=== PATIENT | male | born 1955 | race African-American/Black ===

== ENCOUNTER 2019-05-03 10:35 | Inpatient (IN) ==
[2019-05-03] MEDS ORDERED: ACETAMINOPHEN 325 MG TABLET PO PRN (14:33)
[2019-05-03] MEDS ORDERED: MORPHINE 4 MG/1 ML VIAL IV PRN (14:33)
[2019-05-03] MEDS ORDERED: ZALEPLON 5 MG CAPSULE PO PRN (14:33)
[2019-05-03] MEDS ORDERED: ONDANSETRON 4 MG/2 ML VIAL IV PRN (14:33)
[2019-05-03 15:23] LABS: Albumin 3.3 G/DL (3.4-5.0); Bilirubin,Total 0.5 MG/DL (0.2-1.0); Calcium 8.5 MG/DL (8.5-10.1); Osmolality,Calculated 302.5 MOS/KG (273-304); Total Protein 7.6 G/DL (6.4-8.3)
[2019-05-03] MEDS: ENOXAPARIN 30 MG/0.3 ML SYRINGE SUBCUT SCH (16:22)
[2019-05-03] MEDS ORDERED: BISACODYL 10 MG SUPP RECTAL ONE (16:48)
[2019-05-03] MEDS: POLYETHYLENE GLYCOL POWDER 17 GM PACK PO SCH (17:30)
[2019-05-03 18:56] LABS: Apearance,Urine CLEAR (Clear); Bilirubin,Urine Negative (Negative); Blood, Urine Moderate mg/dL (Negative); Glucose,Urine (UA) Negative (Negative); Ketones,Urine Negative (Negative); Mucus,Urine Occasional /LPF (Occasional); Nitrite,Urine Positive (Negative); Protein,Urine 100 MG/DL; RBC,Urine 161 /HPF (0-4); Urine Color Amber (Yellow); Urine Specific Gravity 1.008 (1.001-1.035); WBC,Urine 4 /HPF (0-6)
[2019-05-03] MEDS: SODIUM CHLORIDE 0.9% 1,000 ML IV SCH (19:03)
[2019-05-03] MEDS ORDERED: cefTRIAXone 2,000 MG in SYRINGE 1 EACH IV SCH (21:00)
[2019-05-03] MEDS: DOCUSATE SODIUM 100 MG CAPSULE PO SCH (21:45)
[2019-05-03] MEDS: CARVEDILOL 6.25 MG TABLET PO SCH (21:45)
[2019-05-04 04:40] LABS: Basophils % 0.4 % (0.0-0.8); Eosinophils # 0.2 10*3/uL (0.0-0.87); Eosinophils % 2.1 % (0.00-10.9); Hematocrit 29.7 VOL% (42.0-52.0); Hemoglobin 9.4 GM/DL (14.0-18.0); Immature Granulocytes % 0.3 %; Immature Granulocytes Absolute 0.03 #; Lymphocytes # 1.3 10*3/uL (1.4-4.0); Lymphocytes % 13.4 % (21.2-54.2); Mean Corpuscular HGB Conc 31.6 GM/DL (32-36); Mean Corpuscular Volume 88.9 FL (87-102); Mean Platelet Volume 11.7 FL (9.6-12.0); Monocytes % 8.1 % (1.7-12.7); Neutrophils % 75.7 % (38.7-73.9); Platelet Count 174 T/CUMM (130-400); Red Blood Count 3.34 MC/CUMM (3.8-5.5); Red Cell Distribution Width 15.9 % (9.3-17.3); White Blood Count 9.8 T/CUMM (4-12)
[2019-05-04 05:02] LABS: Calcium 8.3 MG/DL (8.5-10.1); Osmolality,Calculated 302.4 MOS/KG (273-304)
[2019-05-04] MEDS: SODIUM CHLORIDE 0.9% 1,000 ML IV SCH ×4 (07:00→20:55)
[2019-05-04] MEDS: DOCUSATE SODIUM 100 MG CAPSULE PO SCH ×2 (10:08→20:56)
[2019-05-04] MEDS: CARVEDILOL 6.25 MG TABLET PO SCH ×2 (10:08→20:56)
[2019-05-04] MEDS: POLYETHYLENE GLYCOL POWDER 17 GM PACK PO SCH (10:08)
[2019-05-04] MEDS: amLODIPine 5 MG TABLET PO SCH (10:08)
[2019-05-04] MEDS: ISOSORBIDE MONONITRATE 30 MG TABLET PO SCH (10:12)
[2019-05-04] MEDS: FERROUS SULFATE 325 MG TABLET PO SCH (10:12)
[2019-05-04] MEDS: MEROPENEM 500 MG in SODIUM CHLORIDE 0.9% 100 ML IV SCH ×2 (10:12→20:56)
[2019-05-04] MEDS: ENOXAPARIN 30 MG/0.3 ML SYRINGE SUBCUT SCH (16:05)
[2019-05-05] MEDS: SODIUM CHLORIDE 0.9% 1,000 ML IV SCH ×2 (05:20→15:26)
[2019-05-05 05:27] LABS: Basophils % 0.4 % (0.0-0.8); Eosinophils # 0.2 10*3/uL (0.0-0.87); Eosinophils % 2.9 % (0.00-10.9); Hematocrit 29.6 VOL% (42.0-52.0); Hemoglobin 9.2 GM/DL (14.0-18.0); Immature Granulocytes % 0.5 %; Immature Granulocytes Absolute 0.04 #; Lymphocytes # 1.5 10*3/uL (1.4-4.0); Lymphocytes % 18.5 % (21.2-54.2); Mean Corpuscular HGB Conc 31.1 GM/DL (32-36); Mean Corpuscular Volume 90.2 FL (87-102); Mean Platelet Volume 11.6 FL (9.6-12.0); Monocytes % 7.5 % (1.7-12.7); Neutrophils % 70.2 % (38.7-73.9); Platelet Count 194 T/CUMM (130-400); Red Blood Count 3.28 MC/CUMM (3.8-5.5); Red Cell Distribution Width 15.6 % (9.3-17.3); White Blood Count 8.3 T/CUMM (4-12)
[2019-05-05 05:43] LABS: Calcium 8.5 MG/DL (8.5-10.1); Osmolality,Calculated 299.8 MOS/KG (273-304)
[2019-05-05] MEDS: DOCUSATE SODIUM 100 MG CAPSULE PO SCH ×2 (08:25→21:19)
[2019-05-05] MEDS: amLODIPine 5 MG TABLET PO SCH (08:25)
[2019-05-05] MEDS: CARVEDILOL 6.25 MG TABLET PO SCH ×2 (08:25→21:20)
[2019-05-05] MEDS: POLYETHYLENE GLYCOL POWDER 17 GM PACK PO SCH (08:25)
[2019-05-05] MEDS: FERROUS SULFATE 325 MG TABLET PO SCH (08:25)
[2019-05-05] MEDS: ISOSORBIDE MONONITRATE 30 MG TABLET PO SCH (08:25)
[2019-05-05] MEDS: MEROPENEM 500 MG in SODIUM CHLORIDE 0.9% 100 ML IV SCH ×2 (08:26→21:17)
[2019-05-05] MEDS ORDERED: BELLADONNA/OPIUM 30 MG SUPP RECTAL PRN (10:41)
[2019-05-05] MEDS: OXYBUTYNIN XL 10 MG TABLET PO SCH (11:55)
[2019-05-05] MEDS: ENOXAPARIN 30 MG/0.3 ML SYRINGE SUBCUT SCH (16:35)
[2019-05-06 05:15] LABS: Basophils % 0.5 % (0.0-0.8); Eosinophils # 0.3 10*3/uL (0.0-0.87); Eosinophils % 3.7 % (0.00-10.9); Hemoglobin 9.3 GM/DL (14.0-18.0); Immature Granulocytes % 0.4 %; Immature Granulocytes Absolute 0.03 #; Lymphocytes # 1.6 10*3/uL (1.4-4.0); Lymphocytes % 21.3 % (21.2-54.2); Mean Corpuscular Volume 89.8 FL (87-102); Mean Platelet Volume 11.6 FL (9.6-12.0); Monocytes % 7.6 % (1.7-12.7); Neutrophils % 66.5 % (38.7-73.9); Platelet Count 206 T/CUMM (130-400); Red Blood Count 3.34 MC/CUMM (3.8-5.5); Red Cell Distribution Width 15.5 % (9.3-17.3); White Blood Count 7.3 T/CUMM (4-12)
[2019-05-06] MEDS: SODIUM CHLORIDE 0.9% 1,000 ML IV SCH (05:21)
[2019-05-06 05:34] LABS: Calcium 8.7 MG/DL (8.5-10.1)
[2019-05-06] MEDS: OXYBUTYNIN XL 10 MG TABLET PO SCH (08:51)
[2019-05-06] MEDS: amLODIPine 5 MG TABLET PO SCH (08:51)
[2019-05-06] MEDS: CARVEDILOL 6.25 MG TABLET PO SCH (08:51)
[2019-05-06] MEDS: DOCUSATE SODIUM 100 MG CAPSULE PO SCH (08:52)
[2019-05-06] MEDS: ISOSORBIDE MONONITRATE 30 MG TABLET PO SCH (08:52)
[2019-05-06] MEDS: FERROUS SULFATE 325 MG TABLET PO SCH (08:52)
[2019-05-06] MEDS: POLYETHYLENE GLYCOL POWDER 17 GM PACK PO SCH (08:55)
[2019-05-06] MEDS ORDERED: ENOXAPARIN 40 MG/0.4 ML SYRINGE SUBCUT SCH (09:00)
[2019-05-06 11:08] VITALS: BP 137/76
== END 2019-05-06 13:49 | disposition home health service (06) | DRG 683 ==
LOC: SUATTDRO 13:56 → N.3E 13:56
PROVIDERS: ADMIT Family Medicine; ATTEND Internal Medicine

== ENCOUNTER 2020-01-21 08:56 | Inpatient (IN) ==
[2020-01-21] MEDS ORDERED: BUPIVACAINE 0.25% /EPI 10 ML VIAL ONE (12:12)
[2020-01-21] MEDS ORDERED: LIDOCAINE 1%/EPI INJ 20 ML VIAL ONE (12:12)
[2020-01-21] MEDS ORDERED: TISSUE ADHESIVE 1 EACH APPLICATOR TOP ONE (12:12)
[2020-01-21] MEDS ORDERED: ceFAZolin 1,000 MG in SYRINGE 1 EACH IV ONE (12:44)
[2020-01-21] MEDS ORDERED: ceFAZolin 1,000 MG VIAL ONE (12:52)
[2020-01-21] MEDS ORDERED: SODIUM CHLORIDE 0.9% 250 ML IV SCH (13:00)
[2020-01-21] MEDS ORDERED: fentaNYL 100 MCG/2 ML VIAL ONE (14:53)
[2020-01-21] MEDS ORDERED: ONDANSETRON 4 MG/2 ML VIAL ONE (14:53)
[2020-01-21] MEDS ORDERED: DEXAMETHASONE 4 MG/1 ML VIAL ONE (14:53)
[2020-01-21] MEDS ORDERED: propofoL 200 MG/20 ML VIAL IV ONE (14:53)
[2020-01-21] MEDS ORDERED: MIDAZOLAM 2 MG/2 ML VIAL ONE (14:53)
[2020-01-21] MEDS ORDERED: LIDOCAINE 2% 5 ML VIAL ONE (14:53)
[2020-01-21] MEDS ORDERED: SEVOFLURANE 1 UNIT/15 MINUTE INH ONE (14:53)
[2020-01-21] MEDS ORDERED: SUCCINYLCHOLINE 200 MG/10 ML VIAL ONE (14:54)
[2020-01-21] MEDS ORDERED: ePHEDrine 50 MG/ML AMP ONE (14:54)
[2020-01-21] MEDS ORDERED: ROCURONIUM 100 MG/10 ML VIAL IV ONE (14:54)
[2020-01-21] MEDS ORDERED: PHENYLEPHRINE 10 MG/1 ML VIAL IV ONE (14:55)
[2020-01-21] MEDS ORDERED: SODIUM CHLORIDE 0.9% 100 ML IV ONE (14:55)
[2020-01-21] MEDS ORDERED: SODIUM CHLORIDE 0.9% 500 ML IV ONE (14:55)
[2020-01-21] MEDS ORDERED: METOPROLOL TARTRATE 5 MG/5 ML VIAL IV ONE (14:55)
[2020-01-21 14:57] LABS: Apearance,Urine Slightly Hazy (Clear); Bacteria,Urine Occasional /HPF (Few); Bilirubin,Urine Negative (Negative); Blood, Urine Small mg/dL (Negative); Glucose,Urine (UA) Negative (Negative); Ketones,Urine Negative (Negative); Mucus,Urine Occasional /LPF (Occasional); Nitrite,Urine Negative (Negative); Protein,Urine 30 MG/DL; RBC,Urine 2 /HPF (0-4); Urine Color Yellow (Yellow); Urine Specific Gravity 1.014 (1.001-1.035); Urine Urobilinogen < 2.0 EU/DL (0.2-1.0); WBC,Urine 13 /HPF (0-6)
[2020-01-21] MEDS ORDERED: ACETAMINOPHEN 325 MG TABLET PO PRN (15:46)
[2020-01-21] MEDS: HYDROmorphone 2 MG/1 ML VIAL IV PRN ×2 (16:05→19:44)
[2020-01-21] MEDS: PANTOPRAZOLE 40 MG VIAL IV SCH (16:09)
[2020-01-21] MEDS: SODIUM CHLORIDE 0.9% 1,000 ML IV SCH (16:15)
[2020-01-21] MEDS: PIPERACILLIN/TAZOBACTAM 3,375 MG in SODIUM CHLORIDE 0.9% 100 ML IV SCH (16:24)
[2020-01-21] MEDS: carvediloL 25 MG TABLET PO SCH (21:35)
[2020-01-22] MEDS: HYDROmorphone 2 MG/1 ML VIAL IV PRN ×3 (00:07→21:16)
[2020-01-22] MEDS: PIPERACILLIN/TAZOBACTAM 3,375 MG in SODIUM CHLORIDE 0.9% 100 ML IV SCH ×3 (00:08→15:30)
[2020-01-22 05:51] LABS: Basophils % 0.1 % (0.0-0.8); Hematocrit 35.5 VOL% (42.0-52.0); Hemoglobin 11.5 GM/DL (14.0-18.0); Immature Granulocytes Absolute 0.14 #; Lymphocytes # 0.6 10*3/uL (1.4-4.0); Lymphocytes % 4.4 % (21.2-54.2); Mean Corpuscular HGB Conc 32.4 GM/DL (32-36); Mean Corpuscular Volume 88.3 FL (87-102); Mean Platelet Volume 11.3 FL (9.6-12.0); Neutrophils % 91.5 % (38.7-73.9); Platelet Count 209 T/CUMM (130-400); Red Blood Count 4.02 MC/CUMM (3.8-5.5); Red Cell Distribution Width 16.4 % (9.3-17.3); White Blood Count 14.1 T/CUMM (4-12)
[2020-01-22 06:14] LABS: Calcium 8.5 MG/DL (8.5-10.1); Osmolality,Calculated 294.3 MOS/KG (273-304)
[2020-01-22 06:16] LABS: Band Neutrophils 1 % (0-10); Hypochromasia Slight; Lymphocytes 3 % (20-55); Nucleated Red Blood Cells 1 (0-5); Platelet Estimate Adequate; Segmented Neutrophils 95 % (50-85); Total Cells Counted 100
[2020-01-22] MEDS: SODIUM CHLORIDE 0.9% 1,000 ML IV SCH ×2 (07:28)
[2020-01-22] MEDS: ASPIRIN EC 81 MG TABLET PO SCH (08:34)
[2020-01-22] MEDS: carvediloL 25 MG TABLET PO SCH ×2 (08:34→21:11)
[2020-01-22] MEDS: ENOXAPARIN 40 MG/0.4 ML SYRINGE SUBCUT SCH (08:34)
[2020-01-22] MEDS: amLODIPine 10 MG TABLET PO SCH (08:34)
[2020-01-22] MEDS: allopurinoL 300 MG TABLET PO SCH (08:34)
[2020-01-22] MEDS: PANTOPRAZOLE 40 MG VIAL IV SCH (08:34)
[2020-01-22] MEDS: ISOSORBIDE MONONITRATE 30 MG TABLET PO SCH (08:35)
[2020-01-22] MEDS: LACTATED RINGERS 1,000 ML IV SCH ×2 (12:30→18:25)
[2020-01-22] MEDS: ONDANSETRON 4 MG/2 ML VIAL IV PRN (21:10)
[2020-01-23] MEDS: PIPERACILLIN/TAZOBACTAM 3,375 MG in SODIUM CHLORIDE 0.9% 100 ML IV SCH ×4 (00:34→22:51)
[2020-01-23 05:43] LABS: Basophils % 0.1 % (0.0-0.8); Hemoglobin 10.7 GM/DL (14.0-18.0); Immature Granulocytes % 1.2 %; Immature Granulocytes Absolute 0.16 #; Lymphocytes # 1.3 10*3/uL (1.4-4.0); Lymphocytes % 9.6 % (21.2-54.2); Mean Corpuscular HGB Conc 31.5 GM/DL (32-36); Mean Corpuscular Volume 88.3 FL (87-102); Monocytes % 5.8 % (1.7-12.7); Neutrophils % 83.3 % (38.7-73.9); Platelet Count 243 T/CUMM (130-400); Red Blood Count 3.85 MC/CUMM (3.8-5.5); Red Cell Distribution Width 16.3 % (9.3-17.3); White Blood Count 13.9 T/CUMM (4-12)
[2020-01-23] MEDS: LACTATED RINGERS 1,000 ML IV SCH ×4 (05:43→20:29)
[2020-01-23 06:11] LABS: Calcium 8.8 MG/DL (8.5-10.1); Osmolality,Calculated 293.3 MOS/KG (273-304)
[2020-01-23] MEDS: ONDANSETRON 4 MG/2 ML VIAL IV PRN (07:28)
[2020-01-23] MEDS: allopurinoL 300 MG TABLET PO SCH (08:18)
[2020-01-23] MEDS: ISOSORBIDE MONONITRATE 30 MG TABLET PO SCH (09:19)
[2020-01-23] MEDS: carvediloL 25 MG TABLET PO SCH ×2 (09:19→20:16)
[2020-01-23] MEDS: ASPIRIN EC 81 MG TABLET PO SCH (09:20)
[2020-01-23] MEDS: POTASSIUM CHLORIDE RIDER 10 MEQ in PREMIX 1 EACH IV SCH ×4 (09:20→15:13)
[2020-01-23] MEDS: PANTOPRAZOLE 40 MG VIAL IV SCH (09:20)
[2020-01-23] MEDS: amLODIPine 10 MG TABLET PO SCH (09:20)
[2020-01-23] MEDS: ENOXAPARIN 40 MG/0.4 ML SYRINGE SUBCUT SCH (09:20)
[2020-01-23] MEDS: FUROSEMIDE 20 MG/2 ML VIAL IV SCH ×2 (09:21→16:20)
[2020-01-23] MEDS: PROMETHAZINE 25 MG/1 ML VIAL IM PRN (22:44)
[2020-01-24] MEDS: LACTATED RINGERS 1,000 ML IV SCH ×4 (05:26→23:23)
[2020-01-24 06:24] LABS: Basophils % 0.2 % (0.0-0.8); Eosinophils % 0.1 % (0.00-10.9); Hemoglobin 10.6 GM/DL (14.0-18.0); Immature Granulocytes % 0.6 %; Immature Granulocytes Absolute 0.05 #; Lymphocytes # 1.6 10*3/uL (1.4-4.0); Lymphocytes % 18.6 % (21.2-54.2); Mean Corpuscular HGB Conc 31.2 GM/DL (32-36); Mean Platelet Volume 11.6 FL (9.6-12.0); Monocytes % 10.8 % (1.7-12.7); Neutrophils % 69.7 % (38.7-73.9); Platelet Count 229 T/CUMM (130-400); Red Blood Count 3.82 MC/CUMM (3.8-5.5); Red Cell Distribution Width 16.2 % (9.3-17.3); White Blood Count 8.4 T/CUMM (4-12)
[2020-01-24 06:45] LABS: Calcium 8.5 MG/DL (8.5-10.1); Osmolality,Calculated 293.8 MOS/KG (273-304)
[2020-01-24 06:49] LABS: Hypochromasia 1+; Platelet Estimate Adequate
[2020-01-24] MEDS: FUROSEMIDE 20 MG/2 ML VIAL IV SCH ×2 (08:07→16:09)
[2020-01-24] MEDS: PIPERACILLIN/TAZOBACTAM 3,375 MG in SODIUM CHLORIDE 0.9% 100 ML IV SCH ×3 (08:14→23:21)
[2020-01-24] MEDS: ASPIRIN EC 81 MG TABLET PO SCH (09:40)
[2020-01-24] MEDS: amLODIPine 10 MG TABLET PO SCH (09:41)
[2020-01-24] MEDS: carvediloL 25 MG TABLET PO SCH ×2 (09:41→20:36)
[2020-01-24] MEDS: ISOSORBIDE MONONITRATE 30 MG TABLET PO SCH (09:41)
[2020-01-24] MEDS: ENOXAPARIN 40 MG/0.4 ML SYRINGE SUBCUT SCH (09:41)
[2020-01-24] MEDS: PANTOPRAZOLE 40 MG VIAL IV SCH (09:42)
[2020-01-24] MEDS: allopurinoL 300 MG TABLET PO SCH (09:42)
[2020-01-24] MEDS: PROMETHAZINE 25 MG/1 ML VIAL IM PRN (20:36)
[2020-01-25 05:06] LABS: Basophils % 0.2 % (0.0-0.8); Eosinophils # 0.1 10*3/uL (0.0-0.87); Eosinophils % 0.7 % (0.00-10.9); Hematocrit 34.6 VOL% (42.0-52.0); Hemoglobin 10.9 GM/DL (14.0-18.0); Immature Granulocytes % 0.8 %; Immature Granulocytes Absolute 0.07 #; Lymphocytes # 1.8 10*3/uL (1.4-4.0); Lymphocytes % 20.5 % (21.2-54.2); Mean Corpuscular HGB Conc 31.5 GM/DL (32-36); Mean Corpuscular Volume 88.5 FL (87-102); Mean Platelet Volume 10.6 FL (9.6-12.0); Monocytes % 9.8 % (1.7-12.7); Platelet Count 259 T/CUMM (130-400); Red Blood Count 3.91 MC/CUMM (3.8-5.5); Red Cell Distribution Width 15.9 % (9.3-17.3); White Blood Count 8.8 T/CUMM (4-12)
[2020-01-25 05:42] LABS: Hypochromasia 1+
[2020-01-25 05:43] LABS: Microcytosis 1+; Platelet Estimate Normal
[2020-01-25] MEDS: FUROSEMIDE 20 MG/2 ML VIAL IV SCH ×2 (07:53→16:28)
[2020-01-25] MEDS: PIPERACILLIN/TAZOBACTAM 3,375 MG in SODIUM CHLORIDE 0.9% 100 ML IV SCH ×2 (07:58→16:32)
[2020-01-25] MEDS: LACTATED RINGERS 1,000 ML IV SCH ×3 (08:00→20:36)
[2020-01-25] MEDS: ASPIRIN EC 81 MG TABLET PO SCH (09:30)
[2020-01-25] MEDS: allopurinoL 300 MG TABLET PO SCH (09:30)
[2020-01-25] MEDS: amLODIPine 10 MG TABLET PO SCH (09:30)
[2020-01-25] MEDS: ENOXAPARIN 40 MG/0.4 ML SYRINGE SUBCUT SCH (09:30)
[2020-01-25] MEDS: ISOSORBIDE MONONITRATE 30 MG TABLET PO SCH (09:30)
[2020-01-25] MEDS: carvediloL 25 MG TABLET PO SCH ×2 (09:30→20:32)
[2020-01-25] MEDS: PANTOPRAZOLE 40 MG VIAL IV SCH (09:32)
[2020-01-25] MEDS: HYDROmorphone 2 MG/1 ML VIAL IV PRN ×2 (10:00→20:30)
[2020-01-25] MEDS: PROMETHAZINE 25 MG/1 ML VIAL IM PRN (20:30)
[2020-01-26] MEDS: PIPERACILLIN/TAZOBACTAM 3,375 MG in SODIUM CHLORIDE 0.9% 100 ML IV SCH ×3 (00:21→16:07)
[2020-01-26 06:22] LABS: Basophils % 0.4 % (0.0-0.8); Eosinophils # 0.1 10*3/uL (0.0-0.87); Eosinophils % 1.2 % (0.00-10.9); Hematocrit 32.8 VOL% (42.0-52.0); Hemoglobin 10.7 GM/DL (14.0-18.0); Immature Granulocytes % 1.4 %; Immature Granulocytes Absolute 0.11 #; Lymphocytes # 1.5 10*3/uL (1.4-4.0); Lymphocytes % 18.9 % (21.2-54.2); Mean Corpuscular HGB Conc 32.6 GM/DL (32-36); Mean Corpuscular Volume 86.5 FL (87-102); Mean Platelet Volume 10.5 FL (9.6-12.0); Neutrophils % 69.1 % (38.7-73.9); Platelet Count 299 T/CUMM (130-400); Red Blood Count 3.79 MC/CUMM (3.8-5.5); Red Cell Distribution Width 15.9 % (9.3-17.3)
[2020-01-26] MEDS: LACTATED RINGERS 1,000 ML IV SCH ×4 (07:34→21:34)
[2020-01-26] MEDS: FUROSEMIDE 20 MG/2 ML VIAL IV SCH ×2 (08:38→16:01)
[2020-01-26] MEDS: HYDROmorphone 2 MG/1 ML VIAL IV PRN ×2 (08:52→20:26)
[2020-01-26] MEDS: carvediloL 25 MG TABLET PO SCH ×2 (09:17→20:27)
[2020-01-26] MEDS: ISOSORBIDE MONONITRATE 30 MG TABLET PO SCH (09:17)
[2020-01-26] MEDS: amLODIPine 10 MG TABLET PO SCH (09:17)
[2020-01-26] MEDS: ASPIRIN EC 81 MG TABLET PO SCH (09:17)
[2020-01-26] MEDS: ENOXAPARIN 40 MG/0.4 ML SYRINGE SUBCUT SCH (09:18)
[2020-01-26] MEDS: allopurinoL 300 MG TABLET PO SCH (09:18)
[2020-01-26] MEDS: PANTOPRAZOLE 40 MG VIAL IV SCH (09:19)
[2020-01-26] MEDS: PROMETHAZINE 25 MG/1 ML VIAL IM PRN (20:26)
[2020-01-27] MEDS: PIPERACILLIN/TAZOBACTAM 3,375 MG in SODIUM CHLORIDE 0.9% 100 ML IV SCH ×4 (01:02→22:57)
[2020-01-27 04:46] LABS: Basophils % 0.3 % (0.0-0.8); Eosinophils # 0.1 10*3/uL (0.0-0.87); Eosinophils % 1.9 % (0.00-10.9); Hematocrit 34.7 VOL% (42.0-52.0); Hemoglobin 10.9 GM/DL (14.0-18.0); Immature Granulocytes Absolute 0.07 #; Lymphocytes # 1.8 10*3/uL (1.4-4.0); Lymphocytes % 25.4 % (21.2-54.2); Mean Corpuscular HGB Conc 31.4 GM/DL (32-36); Mean Corpuscular Volume 88.3 FL (87-102); Mean Platelet Volume 10.4 FL (9.6-12.0); Monocytes % 9.6 % (1.7-12.7); Neutrophils % 61.8 % (38.7-73.9); Platelet Count 319 T/CUMM (130-400); Red Blood Count 3.93 MC/CUMM (3.8-5.5); Red Cell Distribution Width 15.9 % (9.3-17.3)
[2020-01-27] MEDS: HYDROmorphone 2 MG/1 ML VIAL IV PRN ×3 (05:31→22:56)
[2020-01-27] MEDS: FUROSEMIDE 20 MG/2 ML VIAL IV SCH ×2 (09:06→16:16)
[2020-01-27] MEDS: ISOSORBIDE MONONITRATE 30 MG TABLET PO SCH (09:07)
[2020-01-27] MEDS: amLODIPine 10 MG TABLET PO SCH (09:07)
[2020-01-27] MEDS: carvediloL 25 MG TABLET PO SCH ×2 (09:07→20:51)
[2020-01-27] MEDS: allopurinoL 300 MG TABLET PO SCH (09:07)
[2020-01-27] MEDS: ASPIRIN EC 81 MG TABLET PO SCH (09:08)
[2020-01-27] MEDS: PANTOPRAZOLE 40 MG VIAL IV SCH (09:12)
[2020-01-27] MEDS: ENOXAPARIN 40 MG/0.4 ML SYRINGE SUBCUT SCH (09:17)
[2020-01-27] MEDS: LACTATED RINGERS 1,000 ML IV SCH ×4 (13:48→20:52)
[2020-01-28] MEDS: HYDROmorphone 2 MG/1 ML VIAL IV PRN (04:22)
[2020-01-28 05:58] LABS: Basophils % 0.5 % (0.0-0.8); Eosinophils # 0.1 10*3/uL (0.0-0.87); Eosinophils % 1.6 % (0.00-10.9); Hematocrit 32.7 VOL% (42.0-52.0); Hemoglobin 10.3 GM/DL (14.0-18.0); Immature Granulocytes % 0.8 %; Immature Granulocytes Absolute 0.05 #; Lymphocytes # 1.6 10*3/uL (1.4-4.0); Lymphocytes % 24.8 % (21.2-54.2); Mean Corpuscular HGB Conc 31.5 GM/DL (32-36); Mean Corpuscular Volume 88.1 FL (87-102); Mean Platelet Volume 10.6 FL (9.6-12.0); Neutrophils % 63.3 % (38.7-73.9); Platelet Count 322 T/CUMM (130-400); Red Blood Count 3.71 MC/CUMM (3.8-5.5); Red Cell Distribution Width 15.6 % (9.3-17.3); White Blood Count 6.5 T/CUMM (4-12)
[2020-01-28] MEDS: PIPERACILLIN/TAZOBACTAM 3,375 MG in SODIUM CHLORIDE 0.9% 100 ML IV SCH (07:06)
[2020-01-28] MEDS: ISOSORBIDE MONONITRATE 30 MG TABLET PO SCH (09:54)
[2020-01-28] MEDS: ENOXAPARIN 40 MG/0.4 ML SYRINGE SUBCUT SCH (09:54)
[2020-01-28] MEDS: carvediloL 25 MG TABLET PO SCH (09:54)
[2020-01-28] MEDS: amLODIPine 10 MG TABLET PO SCH (09:54)
[2020-01-28] MEDS: allopurinoL 300 MG TABLET PO SCH (09:54)
[2020-01-28] MEDS: ASPIRIN EC 81 MG TABLET PO SCH (09:54)
[2020-01-28] MEDS: FUROSEMIDE 20 MG/2 ML VIAL IV SCH (09:55)
[2020-01-28] MEDS: PANTOPRAZOLE 40 MG VIAL IV SCH (10:00)
[2020-01-28 11:45] VITALS: BP 132/67
== END 2020-01-28 11:42 | disposition home or self-care (01) | DRG 339 ==
LOC: EDUNIT# → EDBD → N.ED 08:56 → N.EDINP 08:56 → N.3E 12:20
PROVIDERS: ADMIT Student in an Organized Health Care Education/Training Program; ATTEND Student in an Organized Health Care Education/Training Program